=== PATIENT | male | born 1955 | race Caucasian/White ===

== ENCOUNTER 2021-06-25 07:41 | Inpatient (IN) | payer OTHER ==
[2021-06-25 08:12] LABS: Absolute Lymphocytes (CBC) 0.6 K/uL (0.7-4.9); Hematocrit 38.6 % (39.6-49.0); Lymphocytes % 7.5 % (15.3-44.8); MPV 7.8 fL (7.6-11.3); RBC Red Blood Cell Count 4.28 M/uL (4.33-5.43)
[2021-06-25 08:18] LABS: Protime INR 1.67
[2021-06-25 08:25] LABS: Potassium 3.8 mmol/L (3.5-5.1); Troponin High Sensitivity 15.2 pg/mL (<58.9)
[2021-06-25] MEDS ORDERED: METHYLPREDNISOLONE 125 MG INJ ONE (08:47)
[2021-06-25] MEDS ORDERED: CEFTRIAXONE 1000 MG/VIAL ONE (08:47)
[2021-06-25] MEDS ORDERED: ALBUTEROL 2.5 MG/3 ML NEB SOL ONE (08:47)
[2021-06-25] MEDS ORDERED: NA CHLORIDE 0.9% 100 ML IV ONE (08:48)
[2021-06-25] MEDS ORDERED: IPRATROPIUM BROM 0.5MG/2.5ML ONE (08:48)
[2021-06-25] MEDS ORDERED: NA CHLORIDE 0.9% 0 ML ONE (08:48)
[2021-06-25] MEDS ORDERED: AZITHROMYCIN 500 MG INJ IVPB ONE (08:48)
[2021-06-25] MEDS ORDERED: NA CHLORIDE 0.9% 250 ML ONE (08:48)
--- NOTE | 2021-06-25 09:20 | RAD REPORT ---
EXAM DESCRIPTION: CT - Head Brain Wo Cont - 06/25/2021 9:09 am CLINICAL HISTORY: Syncope, simple, normal neuro exam COMPARISON: No comparisons TECHNIQUE: All CT scans are performed using dose optimization technique as appropriate and may inclu de automated exposure control or mA/KV adjustment according to patient size. FINDINGS: No intracranial hemorrhage, hydrocephalus or extra-axial fluid collection.No areas of brai n edema or evidence of midline shift. The paranasal sinuses and mastoids are clear. The calvarium is intact. IMPRESSION: No acute intracranial abnormality.
--- NOTE | 2021-06-25 10:09 | RAD REPORT ---
EXAM DESCRIPTION: RAD - Hip Left 2 View - 06/25/2021 9:42 am CLINICAL HISTORY: PAIN COMPARISON: No comparisons FINDINGS/IMPRESSION: No acute fracture. No malalignment. Mild left acetabular degenerative changes. Peripheral vascular calcifications.
--- NOTE | 2021-06-25 10:10 | RAD REPORT ---
EXAM DESCRIPTION: RAD - Chest Single View - 06/25/2021 9:42 am CLINICAL HISTORY: COPD COMPARISON: No comparisons FINDINGS: Lines: Left upper chest wall pacemaker. Lungs: Linear opacities in left mid lung favored to represent scarring. Pleural: No significant pleural effusions or pneumothorax. Cardiac: The heart size is within normal limits. Bones: No acute fractures. Sternotomy. Other: IMPRESSION: No acute cardiopulmonary disease. Emphysema. The USPTF recommends annual screening for lung cancer with low-dose CT (LDCT) in adults aged 50 to 8 0 years who have a 20 pack-year smoking history and currently smoke or have quit within the past 15 y ears.
--- NOTE | 2021-06-25 10:32 | ER ---
Nurse's Notes [facility] Name: Matty Chaudhary Jr Age: 66 yrs Sex: Male : 1955 Arrival Date: 06/25/2021 Time: 07:47 Bed 17 Private MD: Diagnosis: COPD/ Chronic obstructive pulmonary disease with (acute) exacerbation Presentation: 06/25 07:48 Chief complaint: Patient states: Shortness of breath that started to get worse ww yesterday, swelling to lower extremities and patient admits to standing up and blacking out lately. Coronavirus screen: Client denies travel out of the [place] in the last 14 days. Ebola Screen: Patient denies travel to an Ebola-affected area in the 21 days before illness onset. Initial Sepsis Screen: Does the patient meet any 2 criteria? No. Patient's initial sepsis screen is negative. Does the patient have a suspected source of infection? No. Patient's initial sepsis screen is negative. Risk Assessment: Do you want to hurt yourself or someone else? Patient reports no desire to harm self or others. Onset of symptoms is unknown. 07:48 Method Of Arrival: EMS ww 07:48 Acuity: KIM 3 ww Triage Assessment: 07:50 General: Appears uncomfortable, Behavior is cooperative. Pain: Complains of pain in ww right hip. Neuro: No deficits noted. Level of Consciousness is awake, alert, obeys commands, Oriented to person, place, time, situation, Moves all extremities. Speech is normal. Cardiovascular: Capillary refill Patient's skin is warm and dry. Rhythm is regular Chest pain is denied. Respiratory: Reports shortness of breath cough that is Airway is patent Respiratory effort is labored, pursed lip, Respiratory pattern is tachypnea Breath sounds are coarse Onset: The symptoms/episode began/occurred gradually, the patient has moderate shortness of breath. GI: No signs and/or symptoms were reported involving the gastrointestinal system. Abdomen is non-distended. Derm: Skin is intact. Historical: - Allergies: 07:50 No Known Allergies; ww - PMHx: 07:50 Chronic obstructive lung disease; Congestive heart failure; Coronary atherosclerosis; ww Myocardial infarction; Atrial fibrillation; - PSHx: 07:50 Coronary artery bypass graft; pacemaker; ww - Immunization history:: Adult Immunizations up to date. - Social history:: Smoking status: Patient reports the use of cigarette tobacco products, smokes more than three packs cigarettes per day. Screenin:54 Abuse screen: Denies threats or abuse. Denies injuries from another. Nutritional ww screening: No deficits noted. Tuberculosis screening: No symptoms or risk factors identified. Fall Risk Fall in past 12 months (25 points). No secondary diagnosis (0 pts). IV access (20 points). Ambulatory Aid- None/Bed Rest/Nurse Assist (0 pts). Gait- Normal/Bed Rest/Wheelchair (0 pts) Mental Status- Oriented to own ability (0 pts). Total Dumont Fall Scale indicates Low Risk Score (25-44 pts). Fall prevention measures have been instituted. Side Rails Up X 2 Placed close to Nursing Station 1:1 attendant Assigned to Pt. Frequent Obs/Assesments occuring Family Present and informed to notify staff if they need to leave bedside. Assessment: 07:54 Reassessment: Patient appears in no apparent distress at this time. No changes from ww previously documented assessment. see triage assessment. 08:31 Reassessment: Patient appears in no apparent distress at this time. Patient and/or ww family updated on plan of care and expected duration. Pain level reassessed. Patient is alert, oriented x 3, equal unlabored respirations, skin warm/dry/pink. 09:28 Reassessment: Patient appears in no apparent distress at this time. No changes from ww previously documented assessment. Patient and/or family updated on plan of care and expected duration. Pain level reassessed. Patient is alert, oriented x 3, equal unlabored respirations, skin warm/dry/pink. Patient states feeling better. 10:32 Reassessment: Patient appears in no apparent distress at this time. No changes from ww previously documented assessment. Patient and/or family updated on plan of care and expected duration. Pain level reassessed. Patient is alert, oriented x 3, equal unlabored respirations, skin warm/dry/pink. 11:30 Reassessment: Patient appears in no apparent distress at this time. Patient and/or ww family updated on plan of care and expected duration. Pain level reassessed. patient sleeping. 12:40 Reassessment: Patient appears in no apparent distress at this time. No changes from ww previously documented assessment. Patient and/or family updated on plan of care and expected duration. Pain level reassessed. Patient is alert, oriented x 3, equal unlabored respirations, skin warm/dry/pink. 13:16 Reassessment: Patient appears in no apparent distress at this time. No changes from ww previously documented assessment. Patient and/or family updated on plan of care and expected duration. Pain level reassessed. 14:34 Reassessment: Patient appears in no apparent distress at this time. No changes from ww previously documented assessment. Patient and/or family updated on plan of care and expected duration. Pain level reassessed. Vital Signs: 07:48 BP 152 / 96; Pulse 77; Resp 24; Temp 98.9; Pulse Ox 90% ; Weight 111.13 kg; Height 5 ww ft. 11 in. (180.34 cm); Pain 5/10; 08:15 BP 112 / 68; Pulse 70; Resp 25; Pulse Ox 96% on 4 lpm NC; ww 09:45 BP 106 / 63; Pulse 60; Resp 23; Pulse Ox 94% 4 lpm ; ww 10:45 BP 110 / 62; Pulse 60; Resp 27; Pulse Ox 96% on 4 lpm NC; ww 11:30 BP 102 / 58; Pulse 68; Resp 23; Pulse Ox 95% 4 lpm ; ww 12:14 BP 120 / 62; Pulse 74; Resp 25; Pulse Ox 96% on 4 lpm NC; ww 14:35 BP 111 / 57; Pulse 64; Resp 23; Pulse Ox 97% 4 lpm ; ww 07:48 Body Mass Index 34.17 (111.13 kg, 180.34 cm) ww ED Course: 07:47 Patient arrived in ED. ww 07:49 Patient has correct armband on for positive identification. Bed in low position. Call mh5 light in reach. Side rails up X2. Warm blanket given. court recording monitor on. Pulse ox on. NIBP on. 07:50 Angelina Mandujano MD is Attending Physician. sp3 07:50 Triage completed. ww 07:50 Arm band placed on left wrist. ww 07:54 Initial lab(s) drawn. Inserted saline lock: 20 gauge in right antecubital area, using aseptic technique. Blood collected. 07:55 Ashley Beach, RN is Primary Nurse. ww 09:11 CT Head Brain wo Cont In Process Unspecified. EDMS 09:44 XRAY Chest (1 view) In Process Unspecified. EDMS 09:44 Hip Left 2 View In Process Unspecified. EDMS 10:31 Sang Hines is Hospitalizing Provider. sp3 14:36 No provider procedures requiring assistance completed. Patient admitted, IV remains in ww place. Administered Medications: 08:54 Drug: Albuterol - atroVENT (ipratropium) (3:1) (2.5 mg - 0.5 mg) 3 ml Route: Nebulizer; ww 12:12 Follow up: Response: No adverse reaction ww 08:54 Drug: SOLU-Medrol (methylPrednisoLONE) 125 mg Route: IVP; Site: right antecubital; ww 12:12 Follow up: Response: No adverse reaction ww 08:54 Drug: Rocephin (cefTRIAXone) 1 grams Route: IV; Rate: calculated rate; Site: right ww antecubital; 12:11 Follow up: IV Status: Completed infusion ww 09:43 Drug: Zithromax (azithromycin) 500 mg Route: IVPB; Infused Over: 1 hrs; Site: right antecubital; 12:11 Follow up: IV Status: Completed infusion ww Outcome: 10:31 Decision to Hospitalize by Provider. sp3 14:36 Admitted to Med/surg room 212, with oxygen, with chart, Report called to Viki ww 14:36 Condition: stable 14:36 Instructed on the need for admit. 14:55 Patient left the ED. [email or web address] Signatures: Dispatcher [employer] Charity Sellers5 Apple Vazquez [email or web address] Angelina Mandujano MD MD sp3 Ashley Beach, RN RN ww
--- NOTE | 2021-06-25 10:32 | EDPHYS ---
Physician Documentation [facility] Name: Matty Chaudhary Jr Age: 66 yrs Sex: Male : 1955 Arrival Date: 06/25/2021 Time: 07:47 Bed 17 Private MD: ED Physician Angelina Mandujano HPI: 06/25 08:24 This 66 yrs old Male presents to ER via EMS with complaints of Shortness Of Breath. sp3 08:24 66-year-old male with a history of COPD, CHF, CAD status post CABG, history of A. fib sp3 now presents to the ED for shortness of breath for the last 3 to 4 days progressing to the point where patient states he had a syncopal episode and sustained a ground-level fall injuring his right hip. Patient does state that he can walk but is having some hip pain as well. States that this COPD has been acting up and he feels like that is what is the root cause of his symptoms at this time. He denies chest pain, back pain, abdominal pain, nausea, vomiting, diarrhea, focal neurological deficit, or any other symptoms on ROS at this time. He is unsure about how many times he has "blacked out".. Historical: - Allergies: 07:50 No Known Allergies; ww - PMHx: 07:50 Chronic obstructive lung disease; Congestive heart failure; Coronary atherosclerosis; ww Myocardial infarction; Atrial fibrillation; - PSHx: 07:50 Coronary artery bypass graft; pacemaker; ww - Immunization history:: Adult Immunizations up to date. - Social history:: Smoking status: Patient reports the use of cigarette tobacco products, smokes more than three packs cigarettes per day. ROS: 08:26 Constitutional: Negative for fever, chills, and weight loss, Eyes: Negative for injury, sp3 pain, redness, and discharge, ENT: Negative for injury, pain, and discharge, Neck: Negative for injury, pain, and swelling, Cardiovascular: Negative for chest pain, palpitations, and edema, Back: Negative for injury and pain, MS/Extremity: Negative for injury and deformity, Skin: Negative for injury, rash, and discoloration, Psych: Negative for depression, anxiety, suicide ideation, homicidal ideation, and hallucinations, Allergy/Immunology: Negative for hives, rash, and allergies, Endocrine: Negative for neck swelling, polydipsia, polyuria, polyphagia, and marked weight changes. 08:26 Respiratory: Positive for cough, shortness of breath. 08:26 Neuro: Positive for syncope. 08:26 All other systems are negative. Exam: 08:26 Constitutional: This is a well developed, well nourished patient who is awake, alert, sp3 and in no acute distress. Head/Face: Normocephalic, atraumatic. Eyes: Pupils equal round and reactive to light, extra-ocular motions intact. Lids and lashes normal. Conjunctiva and sclera are non-icteric and not injected. Cornea within normal limits. Periorbital areas with no swelling, redness, or edema. ENT: Nares patent. No nasal discharge, no septal abnormalities noted. External auditory canals are clear. Oropharynx with no redness, swelling, or masses, exudates, or evidence of obstruction, uvula midline. Mucous membranes moist. Neck: Trachea midline, no thyromegaly or masses palpated, and no cervical lymphadenopathy. Supple, full range of motion without nuchal rigidity, or vertebral point tenderness. No Meningismus. Chest/axilla: Normal chest wall appearance and motion. Nontender with no deformity. No lesions are appreciated. Cardiovascular: Regular rate and rhythm with a normal S1 and S2. No gallops, murmurs, or rubs. Normal PMI, no JVD. No pulse deficits. Abdomen/GI: Soft, non-tender, with normal bowel sounds. No distension or tympany. No guarding or rebound. No evidence of tenderness throughout. Back: No spinal tenderness. No costovertebral tenderness. Full range of motion. Skin: Warm, dry with normal turgor. Normal color with no rashes, no lesions, and no evidence of cellulitis. Neuro: Awake and alert, GCS 15, oriented to person, place, time, and situation. Cranial nerves II-XII grossly intact. Motor strength 5/5 in all extremities. Sensory grossly intact. Cerebellar exam normal. Normal gait. Psych: Awake, alert, with orientation to person, place and time. Behavior, mood, and affect are within normal limits. 08:26 ECG was reviewed by the Attending Physician. EKG demonstrates normal sinus rhythm at 68 bpm with normal intervals, normal QRS, normal axis, nonspecific ST/T changes without any evidence of acute ischemia. 08:26 Respiratory: There is inspiratory and expiratory wheezing along with audible rhonchi noted. Breath sounds are equal bilaterally. Initial pulse oxygenation on 2 L by EMS was 90% which is increased to 92% on 4 L nasal cannula.. Vital Signs: 07:48 BP 152 / 96; Pulse 77; Resp 24; Temp 98.9; Pulse Ox 90% ; Weight 111.13 kg; Height 5 ww ft. 11 in. (180.34 cm); Pain 5/10; 08:15 BP 112 / 68; Pulse 70; Resp 25; Pulse Ox 96% on 4 lpm NC; ww 09:45 BP 106 / 63; Pulse 60; Resp 23; Pulse Ox 94% 4 lpm ; ww 10:45 BP 110 / 62; Pulse 60; Resp 27; Pulse Ox 96% on 4 lpm NC; ww 11:30 BP 102 / 58; Pulse 68; Resp 23; Pulse Ox 95% 4 lpm ; ww 12:14 BP 120 / 62; Pulse 74; Resp 25; Pulse Ox 96% on 4 lpm NC; ww 14:35 BP 111 / 57; Pulse 64; Resp 23; Pulse Ox 97% 4 lpm ; ww 07:48 Body Mass Index 34.17 (111.13 kg, 180.34 cm) ww MDM: 07:57 Patient medically screened. sp3 08:28 Data reviewed: vital signs, nurses notes. ED course: Will receive nebulizers, steroids, sp3 and antibiotics. Patient will be admitted for COPD exacerbation, hypoxia, and syncope. Currently he is in normal sinus rhythm but the possibility exists of paroxysmal A. fib. No other neurological symptoms noted and he has a normal neurological exam at this time.. 10:29 ED course: X-ray demonstrates no pneumonia. Laboratory values reviewed and also sp3 demonstrate no significant abnormalities. Patient does feel better with nebulizers and treatment. We will admit patient to general medicine for observation status for continued nebulizers, steroid treatment, and antibiotic coverage.. 06/25 07:51 Order name: Basic Metabolic Panel; Complete Time: 09:17 sp3 06/25 07:51 Order name: CBC with Diff; Complete Time: 09:17 sp3 06/25 07:51 Order name: NT PRO-BNP; Complete Time: 09:17 sp3 06/25 07:51 Order name: PT-INR; Complete Time: 09:17 sp3 06/25 07:51 Order name: Troponin HS; Complete Time: 09:17 sp3 06/25 11:22 Order name: COVID-19 SARS RT PCR (Document "Date of Onset" if Symptomatic) 06/25 12:27 Order name: Urinalysis EDMS 06/25 12:27 Order name: Basic Metabolic Panel EDMS 06/25 12:27 Order name: Basic Metabolic Panel EDMS 06/25 12:27 Order name: CBC with Automated Diff EDMS 06/25 12:27 Order name: CBC with Automated Diff EDMS 06/25 12:27 Order name: Magnesium EDMS 06/25 12:27 Order name: Magnesium EDMS 06/25 12:27 Order name: Phosphorus EDMS 06/25 07:51 Order name: XRAY Chest (1 view) sp3 06/25 07:51 Order name: EKG; Complete Time: 07:52 sp3 06/25 07:51 Order name: Cardiac monitoring; Complete Time: 08:07 sp3 06/25 07:51 Order name: EKG - Nurse/Tech; Complete Time: 08:07 sp3 06/25 07:51 Order name: IV Saline Lock; Complete Time: 08:07 sp3 06/25 07:51 Order name: Labs collected and sent; Complete Time: 08:07 sp3 06/25 07:51 Order name: O2 Per Protocol; Complete Time: 08:07 sp3 06/25 08:32 Order name: CT Head Brain wo Cont; Complete Time: 09:39 sp3 06/25 09:36 Order name: Hip Left 2 View EDMS 06/25 12:27 Order name: Heart Healthy EDMS 06/25 12:27 Order name: Phosphorus EDMS 06/25 07:51 Order name: O2 Sat Monitoring; Complete Time: 08:07 sp3 Administered Medications: 08:54 Drug: Albuterol - atroVENT (ipratropium) (3:1) (2.5 mg - 0.5 mg) 3 ml Route: Nebulizer; ww 12:12 Follow up: Response: No adverse reaction ww 08:54 Drug: SOLU-Medrol (methylPrednisoLONE) 125 mg Route: IVP; Site: right antecubital; ww 12:12 Follow up: Response: No adverse reaction ww 08:54 Drug: Rocephin (cefTRIAXone) 1 grams Route: IV; Rate: calculated rate; Site: right antecubital; 12:11 Follow up: IV Status: Completed infusion ww 09:43 Drug: Zithromax (azithromycin) 500 mg Route: IVPB; Infused Over: 1 hrs; Site: right antecubital; 12:11 Follow up: IV Status: Completed infusion ww Disposition Summary: 06/25/21 10:31 Hospitalization Ordered Hospitalization Status: Observation sp3 Provider: Sang Hines sp3 Location: Telemetry/MedSurg (observation) sp3 Condition: Stable sp3 Problem: an acute exacerbation sp3 Symptoms: have improved sp3 Bed/Room Type: Standard sp3 Room Assignment: [facility](06/25/21 13:44) iw Diagnosis - COPD/ Chronic obstructive pulmonary disease with (acute) exacerbation sp3 Forms: - Medication Reconciliation Form sp3 - SBAR form sp3 Signatures: Dispatcher [employer] EDTabitha Burr RN RN iw Angelina Mandujano MD MD sp3 Ashley Beach RN RN ww Corrections: (The following items were deleted from the chart) 09:36 08:33 Hip Right 2 View+[email or web address].[email or web address] ordered. EDWA EDMS 13:44 10:31 sp3 iw
[2021-06-25] MEDS ORDERED: ACETAMINOPHEN 500 MG TAB PO PRN (12:19)
[2021-06-25] MEDS ORDERED: ALBUTEROL 2.5 MG/3 ML NEB SOL NEB PRN (12:19)
[2021-06-25] MEDS ORDERED: ONDANSETRON 4 MG/2 ML VIAL IV PRN (12:19)
--- NOTE | 2021-06-25 12:35 | P.HP ---
Certification for Inpatient Patient admitted to: Inpatient Practitioner: I am a practitioner with admitting privileges, knowledge of patient current condition, hospital course, and medical plan of care. Services: Services provided to patient in accordance with Admission requirements found in Title 42 Section 412.3 of the Code of Federal Regulations Patient History Date of Service: 06/25/21 Reason for admission: Shortness of breath and wheezing History of Present Illness: 66-year-old gentleman visiting from [place], history of COPD, coronary artery disease, atrial fibrillation presented to the emergency department with a complaint of progressive shortness of breath of 2 days duration. Symptoms associated with wheezing and nonproductive cough. Patient denies any fever or chest pain. He continues to smoke 4 packs of cigarettes per day. Patient noted to be wheezing in the ED. He was given bronchodilator treatment and steroid with partial improvement. Noted to be hypoxic on room air and put on oxygen. Patient also complaining of bilateral lower extremity swelling. Checks x-ray done in the ED demonstrates emphysema, no acute disease. He is admitted for further management. Home Medications: Amlodipine [Norvasc] 5 mg PO DAILY 06/25/21 Apixaban [Eliquis] 5 mg PO BID 06/25/21 Aspirin [Adult Aspirin Regimen] 81 mg PO DAILY 06/25/21 Carvedilol [Coreg] 25 mg PO BID 06/25/21 [place]-3/Dha/Epa/Fish Oil [Fish Oil 1,000 mg Softgel] 1 each PO DAILY 06/25/21 Omeprazole [Prilosec] 40 mg PO DAILY 06/25/21 Rosuvastatin Calcium 20 mg PO BEDTIME 06/25/21 Tramadol HCl [Ultram] 50 mg PO PRN 06/25/21 Valsartan 160 mg PO BID 06/25/21 hydroCHLOROthiazide [Hydrodiuril] 25 mg PO DAILY 06/25/21 - Past Medical/Surgical History -: Hypertension -: Coronary artery disease -: Atrial fibrillation -: CABG -: Cardiac stents - Family History Father -: Cancer - Social History Smoking Status: Current every day smoker Alcohol use: Yes CD- Drugs: No Place of Residence: Home Review of Systems Other: Except as documented, all other systems reviewed and negative. Physical Examination - Physical Exam General: Alert, In no apparent distress, Oriented x3 HEENT: PERRLA, Mucous membr. moist/pink, Sclerae nonicteric Neck: Supple, JVD not distended Respiratory: Diminished, Expiratory wheezes, Other (No crackles) Cardiovascular: Normal S1 S2, No murmurs, Edema (1+ bilateral lower extremity edema), Irregular heart rate/rhythm Capillary refill: <2 Seconds Gastrointestinal: Normal bowel sounds, Soft and benign, No tenderness, Other (Obese abdomen) Musculoskeletal: No tenderness Integumentary: No rashes, No cyanosis Neurological: Normal speech, Normal strength at 5/5 x4 extr, Cranial nerves 3-12 intact Lymphatics: No axilla or inguinal lymphadenopathy - Studies Laboratory Data (last 24 hrs) 06/25/21 07:58: PT 18.6 H, INR 1.67 06/25/21 07:58: WBC 7.9, Hgb 13.0 L, Hct 38.6 L, Plt Count 136 L 06/25/21 07:58: Sodium 132 L, Potassium 3.8, BUN 23 H, Creatinine 0.92, Glucose 119 H Assessment and Plan - Problems (Diagnosis) (1) COPD exacerbation Current Visit: Yes Status: Acute (2) Acute respiratory failure with hypoxia Current Visit: Yes Status: Acute (3) Chronic diastolic (congestive) heart failure Current Visit: Yes Status: Acute (4) CAD (coronary artery disease) Current Visit: Yes Status: Acute (5) Atrial fibrillation Current Visit: Yes Status: Acute - Plan Admit patient to the medical floor. Start treatment for COPD exacerbation with IV steroids, scheduled bronchodilators. Oral Levaquin. IV Lasix as needed for edema and shortness of breath. Supplemental oxygen as needed. Patient advised to quit smoking. Continue home medication for CAD and hypertension. Continue anticoagulation with Eliquis. - Advance Directives Does patient have a Living Will: No Does patient have a Durable POA for Healthcare: No
[2021-06-25 13:20] VITALS: BMI 34.2
[2021-06-25] MEDS: IPRATROPIUM BROM 0.5MG/2.5ML NEB SCH ×3 (15:05→19:20)
[2021-06-25] MEDS ORDERED: TRAMADOL HCL 50 MG TAB PO PRN (15:50)
[2021-06-25] MEDS: FUROSEMIDE 40 MG/4 ML VIAL IV SCH (16:32)
[2021-06-25] MEDS: METHYLPREDNISOLONE 40 MG INJ IV SCH (16:32)
[2021-06-25 20:25] LABS: Urine Appearance CLEAR (Clear); Urine Color YELLOW (Yellow); Urine Glucose NEGATIVE (Negative); Urine Specific Gravity 1.015 (1.005-1.030)
[2021-06-25 20:26] LABS: Urine Bilirubin NEGATIVE (Negative); Urine Blood TRACE (Negative); Urine Protein NEGATIVE (Negative); Urine Urobilinogen 0.2 mg/dL (0.2-1.0)
[2021-06-25 20:27] LABS: Urine Microscopic Reflex ORDER UMIC
[2021-06-25 20:33] LABS: Urine Bacteria <20 /HPF (NONE SEEN); Urine RBC <5 /HPF (NONE SEEN)
[2021-06-25] MEDS ORDERED: carvediloL 25 MG TAB PO SCH (21:00)
[2021-06-25] MEDS ORDERED: ROSUVASTATIN 10 MG TAB PO SCH (21:00)
[2021-06-25] MEDS ORDERED: APIXABAN 5 MG TABLET PO SCH (21:00)
[2021-06-25] MEDS ORDERED: VALSARTAN 160 MG TAB PO SCH (21:00)
[2021-06-26] MEDS: METHYLPREDNISOLONE 40 MG INJ IV SCH (00:04)
[2021-06-26] MEDS: FUROSEMIDE 40 MG/4 ML VIAL IV SCH (00:04)
[2021-06-26] MEDS: IPRATROPIUM BROM 0.5MG/2.5ML NEB SCH (01:20)
[2021-06-26 04:29] LABS: Absolute Lymphocytes (CBC) 0.6 K/uL (0.7-4.9); Hematocrit 38.7 % (39.6-49.0); Lymphocytes % 8.3 % (15.3-44.8); MPV 8.2 fL (7.6-11.3); RBC Red Blood Cell Count 4.27 M/uL (4.33-5.43)
[2021-06-26 04:46] LABS: BUN Blood Urea Nitrogen 24 mg/dL (7-18); Bicarbonate 29 mmol/L (21-32); Glomerular Filtration Rate > 90 mL/min (=/>90); Glucose Level 166 mg/dL (74-106); Magnesium 2.3 mg/dL (1.8-2.4); Phosphorus 2.6 mg/dL (2.5-4.9); Potassium 3.8 mmol/L (3.5-5.1); Sodium Level 135 mmol/L (136-145)
[2021-06-26 05:59] VITALS: BP 154/56; TEMP 97.5
[2021-06-26 07:48] VITALS: O2SAT 98
[2021-06-26] MEDS ORDERED: ENOXAPARIN 40 MG/0.4 ML SQ SCH (09:00)
[2021-06-26] MEDS ORDERED: POTASSIUM CL SA 10 MEQ TAB PO ONE (09:00)
[2021-06-26] MEDS ORDERED: AMLODIPINE 5 MG TAB PO SCH (09:00)
[2021-06-26] MEDS ORDERED: levoFLOXacin 750 MG TAB PO SCH (09:00)
[2021-06-26] MEDS ORDERED: hydroCHLOROthiazide 25 MG TAB PO SCH (09:00)
[2021-06-26] MEDS ORDERED: PANTOPRAZOLE 40MG TABLET PO SCH (09:00)
[2021-06-26] MEDS ORDERED: ASPIRIN EC 81 MG TAB PO SCH (09:00)
[2021-06-26] MEDS ORDERED: DOCOSAHEXANOIC AC/EPA 1000 MG PO SCH (09:00)
--- NOTE | 2021-06-26 09:25 | EKG ---
Test Date: 2021-06-25 Test Time: 08:06:00 [employer] Boat Captain: JENIFFER MEASUREMENT RESULTS: Intervals: Rate: 68 WV: 176 QRSD: 112 QT: 448 QTc: 476 [place]: P: 80 WV: 176 QRS: 55 T: 91 INTERPRETIVE STATEMENTS: Normal sinus rhythm Prolonged QT Abnormal ECG No previous ECG available for comparison Electronically Signed On 06-26-21 09:22:45 CDT by Javon Mcclain
--- NOTE | 2021-06-26 18:35 | P.DS ---
Admission Date: 06/25/21 Discharge Date: 06/26/21 Disposition: AMA-LEFT AGAINST MEDICAL ADVIC Reason for Admission: Shortness of breath and wheezing - Problems (1) COPD exacerbation Status: Acute (2) Acute respiratory failure with hypoxia Status: Acute (3) Chronic diastolic (congestive) heart failure Status: Acute (4) CAD (coronary artery disease) Status: Acute (5) Atrial fibrillation Status: Acute Brief History of Present Illness: 66-year-old gentleman visiting from [place], history of COPD, coronary artery disease, atrial fibrillation presented to the emergency department with a complaint of progressive shortness of breath of 2 days duration. Symptoms associated with wheezing and nonproductive cough. Patient denies any fever or chest pain. He continues to smoke 4 packs of cigarettes per day. Patient noted to be wheezing in the ED. He was given bronchodilator treatment and steroid with partial improvement. Noted to be hypoxic on room air and put on oxygen. Patient also complaining of bilateral lower extremity swelling. Checks x-ray done in the ED demonstrates emphysema, no acute disease. He was admitted for further management. Hospital Course: Patient admitted to the medical floor and treated for COPD exacerbation with IV steroids, scheduled bronchodilators. He also has a history of diastolic heart failure. Patient was placed on IV Lasix. He was needing oxygen to maintain his SaO2 above 90%. I was told this morning patient signed out AGAINST MEDICAL ADVICE in the middle of the night. Vital Signs/Physical Exam: Temp Pulse Resp BP Pulse Ox 97.5 F 64 18 154/56 H 98 06/26/21 04:00 06/26/21 04:00 06/26/21 04:00 06/26/21 04:00 06/26/21 04:00 Laboratory Data at Discharge: WBC 7.0 K/uL (4.3-10.9) 06/26/21 03:59 Hgb 13.0 g/dL (13.6-17.9) L 06/26/21 03:59 Hct 38.7 % (39.6-49.0) L 06/26/21 03:59 Plt Count 142 K/uL (152-406) L 06/26/21 03:59 PT 18.6 SECONDS (9.5-12.5) H 06/25/21 07:58 INR 1.67 06/25/21 07:58 Sodium 135 mmol/L (136-145) L 06/26/21 03:59 Potassium 3.8 mmol/L (3.5-5.1) 06/26/21 03:59 BUN 24 mg/dL (7-18) H 06/26/21 03:59 Creatinine 0.80 mg/dL (0.55-1.3) 06/26/21 03:59 Glucose 166 mg/dL (74-106) H 06/26/21 03:59 Phosphorus 2.6 mg/dL (2.5-4.9) 06/26/21 03:59 Magnesium 2.3 mg/dL (1.8-2.4) 06/26/21 03:59 Home Medications: Amlodipine [Norvasc] 5 mg PO DAILY 06/25/21 Apixaban [Eliquis] 5 mg PO BID 06/25/21 Aspirin [Adult Aspirin Regimen] 81 mg PO DAILY 06/25/21 Carvedilol [Coreg] 25 mg PO BID 06/25/21 [place]-3/Dha/Epa/Fish Oil [Fish Oil 1,000 mg Softgel] 1 each PO DAILY 06/25/21 Omeprazole [Prilosec] 40 mg PO DAILY 06/25/21 Rosuvastatin Calcium 20 mg PO BEDTIME 06/25/21 Tramadol HCl [Ultram] 50 mg PO Q6H PRN 06/25/21 Valsartan 160 mg PO BID 06/25/21 hydroCHLOROthiazide [Hydrodiuril] 25 mg PO DAILY 06/25/21 Followup: NONE,NONE [Primary Care Provider] -
== END 2021-06-26 08:28 | disposition left against medical advice (07) | DRG 190 ==
LOC: ER 07:41 → ERHOLD 12:44 → 2ND 14:01
PROVIDERS: ADMIT Internal Medicine; ATTEND Internal Medicine
DX: J44.1 Chronic obstructive pulmonary disease with (acute) exacerbation (principal); J96.01 Acute respiratory failure with hypoxia; I50.32 Chronic diastolic (congestive) heart failure; I11.0 Hypertensive heart disease with heart failure; I25.10 Atherosclerotic heart disease of native coronary artery without angina pectoris; I48.91 Unspecified atrial fibrillation; F17.210 Nicotine dependence, cigarettes, uncomplicated; Z95.1 Presence of aortocoronary bypass graft; Z95.0 Presence of cardiac pacemaker; Z20.822 Contact with and (suspected) exposure to COVID-19
CPT/HCPCS: 36415; 70450; 71045; 80048; 81003; 81015; 83735; 83880; 84100; 84484; 85025; 85610; 93005; 94640; 94760; 96365; 96366; 96375; 99285; J0456; J1940; J2920; J2930; J7030; J7050; U0003